=== PATIENT | female | born 1950 | race Caucasian/White ===

== ENCOUNTER → 2019-01-17 | Outpatient (CLI) | payer MEDICARE | END | disposition home or self-care (01) | LOC: CFH 11:14 | PROVIDERS: ATTEND Nurse Practitioner Family | DX: Z12.31 Encounter for screening mammogram for malignant neoplasm of breast (principal) | CPT/HCPCS: 77067 ==

== ENCOUNTER 2020-11-15 15:38 | Emergency (ER) | payer MEDICARE ==
[~2020-11-15] VITALS: Ht 170.2 cm; Wt 85.6 kg
[2020-11-15] MEDS ORDERED: SODIUM CHLORIDE FLUSH 10ML SYR IVF ONE (16:30)
[2020-11-15] MEDS ORDERED: ONDANSETRON 2MG/ML, 2ML ONE (16:35)
[2020-11-15] MEDS ORDERED: FAMOTIDINE 20 MG/2 ML ONE (16:35)
[2020-11-15] MEDS ORDERED: MAALOX/HYOSCYAMINE/LIDOCAINE 45 ML BTL ONE (16:35)
[2020-11-15] MEDS: FAMOTIDINE 20 MG/2 ML IV ONE ×2 (16:38→16:42)
[2020-11-15] MEDS: MAALOX/HYOSCYAMINE/LIDOCAINE 45 ML BTL PO ONE ×2 (16:39→16:42)
[2020-11-15] MEDS: ONDANSETRON 2MG/ML, 2ML IVPush ONE ×2 (16:39→16:42)
[2020-11-15] MEDS ORDERED: ARMOUR THYROID (16:44)
--- NOTE | 2020-11-15 16:50 | NUR ---
PT AMBULATED TO RESTROOM WITH STEADY GAIT TO PROVIDE URINE SAMPLE. PIV PLACED, LABS DRAWN AND SENT TO LAB WITH STICKERS. IVF RUNNING. PT REFUSED ALL MEDS. PROVIDER NOTIFIED. PT CONNECTED TO MONITORING. CALL LIGHT IN REACH.
[2020-11-15] MEDS ORDERED: SODIUM CHLORIDE 0.9% 1,000ML IVBOLUS ONE (17:00)
[2020-11-15 17:01] LABS: BASOPHILS % (AUTO) 1 % (0-1); EOSINOPHILS % (AUTO) 0 % (1-7); LYMPHOCYTES % (AUTO) 17 % (22-44); MEAN CORPUSCULAR HEMOGLOBIN 27.3 pg (27.0-34.8); MEAN CORPUSCULAR HGB CONC 33.1 g/dL (32.4-35.8); MEAN PLATELET VOLUME 8.8 fL (7.4-10.4); MONOCYTES % (AUTO) 9 % (2-9); NEUTROPHILS % (AUTO) 73 % (42-75); PLATELET COUNT 271 x10^3/uL (130-400); RED CELL DISTRIBUTION WIDTH 14.8 % (9.6-15.2)
[2020-11-15 17:02] LABS: MD NO
[2020-11-15 17:07] LABS: MICROSCOPIC AUTO
[2020-11-15 17:09] LABS: ALANINE AMINOTRANSFERASE 29 U/L (12-78); ALBUMIN 3.8 g/dL (3.4-5.0); ANION GAP 5 mmol/L (5-15); CALCIUM 9.1 mg/dL (8.5-10.1); CHLORIDE 110 mmol/L (98-107); CREATININE 1.06 mg/dL (0.55-1.02)
--- NOTE | 2020-11-15 17:23 | NUR ---
TASK RN: PT REFUSING CT SCAN STATING "HOW MUCH IS THIS ALL GONNA COST?" PT EDUCATED ON NEED FOR CT SCAN. CONTINUES TO REFUSE. ERP DR. HERNANDEZ NOTIFIED.
[2020-11-15 17:25] LABS: ALKALINE PHOSPHATASE 93 U/L (45-117); BILIRUBIN,TOTAL 0.6 mg/dL (0.2-1.0)
--- NOTE | 2020-11-15 17:25 | NUR ---
TASK RN: JOI LEÓN AT BEDSIDE FOR EDUCATION ABOUT MEDICATIONS/IMAGING.
[2020-11-15] MEDS ORDERED: CEFTRIAXONE PMX 1GM/50ML 50 ML ONE (17:30)
[2020-11-15] MEDS ORDERED: CEFTRIAXONE PMX 1GM/50ML 50 ML IV ONE (17:30)
--- NOTE | 2020-11-15 18:34 | NUR ---
ALL RESULTS ARE BACK AT THIS TIME. CHART UP FOR RECHECK.
[2020-11-15 18:46] VITALS: BP 159/72
== END 2020-11-15 20:35 | disposition home or self-care (01) ==
LOC: ED 17:39
DX: G89.29 Other chronic pain (principal); R10.12 Left upper quadrant pain; N39.0 Urinary tract infection, site not specified; N20.0 Calculus of kidney; R07.89 Other chest pain
CPT/HCPCS: 36415; 71045; 74018; 80053; 81001; 83690; 83880; 85025; 87086; 93005; 96361; 96365; 99285; J0696; J7030; J2405

== ENCOUNTER 2020-11-22 09:46 | Emergency (ER) | payer MEDICARE ==
[~2020-11-22] VITALS: Ht 170.2 cm; Wt 86.3 kg
[~2020-11-22 09:46] MED LIST: ARMOUR THYROID
--- NOTE | 2020-11-22 10:10 | NUR ---
pt states that she came in because4 she needs a copy of the xray she had last time she was here in the er and her urologist asked her to come in to get a US.
[2020-11-22 11:04] LABS: ALBUMIN 3.6 g/dL (3.4-5.0); ANION GAP 6 mmol/L (5-15); CALCIUM 9.2 mg/dL (8.5-10.1); CHLORIDE 110 mmol/L (98-107)
[2020-11-22 11:11] LABS: BASOPHILS % (AUTO) 1 % (0-1); EOSINOPHILS % (AUTO) 2 % (1-7); LYMPHOCYTES % (AUTO) 28 % (22-44); MEAN CORPUSCULAR HEMOGLOBIN 27.5 pg (27.0-34.8); MEAN CORPUSCULAR HGB CONC 32.7 g/dL (32.4-35.8); MEAN PLATELET VOLUME 8.3 fL (7.4-10.4); MONOCYTES % (AUTO) 8 % (2-9); NEUTROPHILS % (AUTO) 61 % (42-75); PLATELET COUNT 226 x10^3/uL (130-400); RED BLOOD COUNT 4.99 x10^6/uL (3.82-5.3); RED CELL DISTRIBUTION WIDTH 14.7 % (9.6-15.2)
--- NOTE | 2020-11-22 11:11 | NUR ---
pt in bed no distress.
[2020-11-22 11:14] LABS: MD NO
--- NOTE | 2020-11-22 12:29 | NUR ---
pt in bed no distress
[2020-11-22 12:31] LABS: MICROSCOPIC AUTO
--- NOTE | 2020-11-22 12:47 | NUR ---
notified md of bp. Addendum: 11/22/20 at 1249 by ERIS notified my of bp will recheck with alphonso gutierrez
[2020-11-22 12:56] VITALS: BP 148/72
--- NOTE | 2020-11-22 13:07 | NUR ---
pt walked out self with steady gait. if s&s worsen return to the er
== END 2020-11-22 13:19 ==
LOC: ED 10:35
DX: N30.00 Acute cystitis without hematuria (principal); I80.9 Phlebitis and thrombophlebitis of unspecified site; N20.0 Calculus of kidney; R10.9 Unspecified abdominal pain; M79.601 Pain in right arm; E03.9 Hypothyroidism, unspecified
CPT/HCPCS: 36415; 76770; 80048; 81001; 82040; 85025; 87086; 99285

== ENCOUNTER 2021-04-18 09:38 | Day surgery (SDC) | payer MEDICARE ==
[~2021-04-18] VITALS: Ht 171.4 cm; Wt 85.7 kg
[~2021-04-18 09:38] MED LIST changes: +AMINO PO; +ASHW300C PO; +BIOT25005 PO; +CHRO200T10 PO; +DMAE PO; +GRAP50CA3 PO; +Iron PO; +L.AC1CAP6 PO; +LACT1CAP35 PO; +MAGN400T36 PO; +MELA1TAB8 PO; +PANTOTHENIC ACID PO; +PRAS1TAB2 PO; +SELE200T10 PO; +THEA200C PO; +THYR60TA PO; +VANADYL SULFATE PO; +VITA100C11 PO; +[UNRECOGNIZED DRUG - OTHER] PO; +[UNRECOGNIZED DRUG - OTHER] PO; +[UNRECOGNIZED DRUG - OTHER] PO; +c-progesterone TP; +hyaluronic acid PO; +milk thistle PO; +zinc PO
[2021-04-18 11:14] VITALS: BP 170/86
[2021-04-18] MEDS ORDERED: ALBU8.5H8 INH (11:19)
[2021-04-18] MEDS ORDERED: SODIUM CHLORIDE 0.9% 1,000 ML IV SCH (11:30)
[2021-04-18] MEDS ORDERED: MIDAZOLAM 1 MG/ML, 5ML ONE (12:10)
[2021-04-18] MEDS ORDERED: FLUMAZENIL 0.1 MG/1 ML, 5ML ONE (12:11)
[2021-04-18] MEDS ORDERED: NALOXONE 1 MG/ML, 2ML ONE (12:11)
[2021-04-18] MEDS ORDERED: FENTANYL PF 100 MCG/2ML ONE (12:11)
[2021-04-18] MEDS ORDERED: LIDOCAINE-MPF 1%, 5ML ONE (12:12)
[2021-04-18] MEDS ORDERED: VISIPAQUE 270 MG/ML, 50ML BOTTLE ONE (13:12)
[2021-04-18] MEDS ORDERED: OXYcodone/APAP 5/325MG TABLET ONE (13:52)
[2021-04-18] MEDS ORDERED: OXYcodone/APAP 5/325MG TABLET PO PRN (14:00)
[2021-04-18] MEDS ORDERED: ACETAMINOPHEN 325 MG TABLET ONE (14:04)
[2021-04-18] MEDS ORDERED: ACETAMINOPHEN 325 MG TABLET PO ONE (14:30)
[2021-04-18] MEDS ORDERED: ONDANSETRON ODT 4 MG PO ONE (14:30)
[2021-04-18] MEDS ORDERED: ONDANSETRON ODT 8 MG ONE (14:38)
[2021-04-18] MEDS ORDERED: ONDANSETRON ODT 8 MG PO ONE (15:00)
== END 2021-04-18 15:20 | disposition home or self-care (01) ==
LOC: RAD 09:38
PROVIDERS: ATTEND Student in an Organized Health Care Education/Training Program
DX: N20.0 Calculus of kidney (principal); I10 Essential (primary) hypertension; E78.5 Hyperlipidemia, unspecified; J45.909 Unspecified asthma, uncomplicated; Z79.899 Other long term (current) drug therapy; Z88.0 Allergy status to penicillin; Z88.8 Allergy status to other drugs, medicaments and biological substances; Z91.018 Allergy to other foods
CPT/HCPCS: 50433; 99156; 99157; C1751; C1769; C1894; C2625; J2250; J3010; J7030; Q9966; 50432; J2310

== ENCOUNTER 2021-04-19 06:54 | Inpatient (IN) | payer MEDICARE ==
[2021-04-16 10:45] LABS: ANION GAP 4 mmol/L (5-15); CALCIUM 9.2 mg/dL (8.5-10.1); CHLORIDE 107 mmol/L (98-107); CREATININE 0.89 mg/dL (0.55-1.02)
[2021-04-16 10:46] LABS: MICROSCOPIC AUTO
[2021-04-16 10:48] LABS: INTERNATIONAL NORMALIZED RATIO 0.95 (0.93-1.1); PROTHROMBIN TIME 10.2 Seconds (9.6-11.5)
[~2021-04-19] VITALS: Ht 171.4 cm; Wt 96.5 kg
[~2021-04-19 06:54] MED LIST changes: +ALBU8.5H8 INH
[2021-04-19 07:28] VITALS: BP 189/82
[2021-04-19] MEDS ORDERED: CHLORHEXIDINE 15 ML UDC PO ONE (07:30)
[2021-04-19] MEDS ORDERED: LACTATED RINGERS 1,000 ML IV SCH (07:30)
[2021-04-19] MEDS ORDERED: MEPERIDINE/PF 25MG/0.5ML IVPush PRN (08:30)
[2021-04-19] MEDS ORDERED: OXYcodone 5 MG/5 ML ORAL.SOL UDC PO PRN (08:30)
[2021-04-19] MEDS ORDERED: DIPHENHYDRAMINE 50 MG/ML, 1ML IVPush PRN (08:30)
[2021-04-19] MEDS ORDERED: HALOPERIDOL 5 MG/ML IV PRN (08:30)
[2021-04-19] MEDS ORDERED: LABETALOL 5MG/ML, 20ML IV PRN (08:30)
[2021-04-19] MEDS ORDERED: ACETAMINOPHEN 325 MG TABLET PO PRN (08:30)
[2021-04-19] MEDS ORDERED: hydrALAzine 20 MG/ML, 1ML IV PRN (08:30)
[2021-04-19] MEDS ORDERED: FENTANYL PF 100 MCG/2ML IV PRN (08:30)
[2021-04-19] MEDS ORDERED: HYDROmorphone 1 MG/ML, 1ML INJ IVPush PRN (08:30)
[2021-04-19] MEDS ORDERED: PROMETHAZINE 25 MG/ML, 1ML IVPush PRN (08:30)
[2021-04-19] MEDS ORDERED: MIDAZOLAM 1 MG/ML, 2ML ONE (10:17)
[2021-04-19] MEDS ORDERED: FENTANYL PF 250 MCG/5ML ONE (10:17)
[2021-04-19] MEDS ORDERED: OMNIPAQUE 350 MG/ML, 50 ML BOTTLE ONE ×2 (10:39→12:16)
[2021-04-19] MEDS ORDERED: GENTAMICIN 80 MG/2 ML ONE ×2 (10:39→11:59)
[2021-04-19] MEDS ORDERED: CEFAZOLIN 1,000 MG ONE ×2 (10:39→13:58)
[2021-04-19] MEDS ORDERED: CLINDAMYCIN 150 MG/ML, 6ML ONE (11:59)
[2021-04-19] MEDS ORDERED: PHENYLEPHRINE 10 MG/ML ONE (12:08)
[2021-04-19] MEDS ORDERED: OMNIPAQUE 180 MG/ML, 20ML VIAL ONE (12:17)
[2021-04-19] MEDS ORDERED: VISIPAQUE 270 MG/ML, 150ML BOTTLE IV ONE (13:00)
[2021-04-19] MEDS ORDERED: NEOSTIGMINE 1 MG/ML, 10ML ONE (13:58)
[2021-04-19] MEDS ORDERED: SUCCINYLCHOLINE 20 MG/ML, 10ML ONE (13:58)
[2021-04-19] MEDS ORDERED: DEXAMETHASONE 4 MG/ML, 1ML ONE (13:58)
[2021-04-19] MEDS ORDERED: ROCURONIUM 10MG/ML,5ML ONE (13:58)
[2021-04-19] MEDS ORDERED: ONDANSETRON 2MG/ML, 2ML ONE (13:58)
[2021-04-19] MEDS ORDERED: PROPOFOL 10 MG/ML, 20ML ONE (13:58)
[2021-04-19] MEDS ORDERED: GLYCOPYRROLATE 0.2MG/1ML, 5ML ONE (13:58)
[2021-04-19] MEDS ORDERED: SODIUM BICARBONATE 1 MEQ/ML, 50ML VIAL ONE (14:00)
[2021-04-19] MEDS ORDERED: ONDANSETRON 2MG/ML, 2ML IV PRN (14:30)
[2021-04-19] MEDS ORDERED: HEPARIN 5,000 UNITS/ML, 1ML SQ SCH (14:30)
[2021-04-19] MEDS: ACETAMINOPHEN 325 MG TABLET PO SCH ×2 (14:30→22:03)
[2021-04-19] MEDS ORDERED: HYDROmorphone 1 MG/ML, 1ML INJ IV PRN (14:30)
[2021-04-19] MEDS ORDERED: MEPERIDINE/PF 25MG/ML,1ML ONE (14:50)
[2021-04-19] MEDS: SODIUM CHLORIDE 0.9% 1,000 ML IV SCH (17:00)
[2021-04-19 17:03] LABS: ALBUMIN 3.3 g/dL (3.4-5.0); CHLORIDE 108 mmol/L (98-107)
[2021-04-19 17:06] LABS: ANION GAP 7 mmol/L (5-15); CREATININE 1.02 mg/dL (0.55-1.02)
[2021-04-19 20:04] VITALS: BP 137/73
[2021-04-19] MEDS: DOCUSATE 100 MG CAPSULE PO SCH (22:03)
[2021-04-19] MEDS: MELATONIN 5 MG TABLET PO SCH (22:03)
[2021-04-20 00:17] VITALS: BP 111/50
[2021-04-20 04:14] VITALS: BP 115/71
[2021-04-20] MEDS: SODIUM CHLORIDE 0.9% 1,000 ML IV SCH ×3 (04:41→23:39)
[2021-04-20] MEDS: ACETAMINOPHEN 325 MG TABLET PO SCH ×4 (04:42→23:38)
[2021-04-20] MEDS: THYROID 30 MG TABLET PO SCH (04:50)
[2021-04-20 06:08] LABS: ANION GAP 5 mmol/L (5-15); CALCIUM 8.7 mg/dL (8.5-10.1); CHLORIDE 110 mmol/L (98-107)
[2021-04-20 06:11] LABS: CREATININE 0.84 mg/dL (0.55-1.02)
[2021-04-20 06:45] VITALS: BP 132/73
[2021-04-20] MEDS: HEPARIN 5,000 UNITS/ML, 1ML SQ SCH ×3 (07:57→23:47)
[2021-04-20] MEDS: DOCUSATE 100 MG CAPSULE PO SCH ×2 (07:57→23:37)
[2021-04-20] MEDS: POLYETHYLENE GLYCOL 17 GM PACKET PO SCH ×2 (07:57→08:02)
[2021-04-20] MEDS: OXYcodone 5 MG/5 ML ORAL.SOL UDC PO PRN ×2 (07:57→13:44)
[2021-04-20] MEDS ORDERED: ALUMINUM/MAG/SIMETHICONE 30 ML UDC ONE (11:35)
[2021-04-20] MEDS ORDERED: ALUMINUM/MAG/SIMETHICONE 30 ML UDC PO PRN (12:00)
[2021-04-20 12:12] VITALS: BP 166/84
[2021-04-20 16:28] VITALS: BP 154/74
[2021-04-20 19:25] VITALS: BP 135/73
[2021-04-20] MEDS: MELATONIN 5 MG TABLET PO SCH (23:37)
[2021-04-21 02:00] VITALS: BP 130/70
[2021-04-21 05:14] LABS: ANION GAP 4 mmol/L (5-15); CALCIUM 8.2 mg/dL (8.5-10.1); CHLORIDE 109 mmol/L (98-107); CREATININE 0.84 mg/dL (0.55-1.02)
[2021-04-21] MEDS: THYROID 30 MG TABLET PO SCH (06:33)
[2021-04-21] MEDS: ACETAMINOPHEN 325 MG TABLET PO SCH ×2 (06:34→11:30)
[2021-04-21 06:46] VITALS: BP 158/94
[2021-04-21] MEDS: POLYETHYLENE GLYCOL 17 GM PACKET PO SCH (08:19)
[2021-04-21] MEDS: DOCUSATE 100 MG CAPSULE PO SCH (08:19)
[2021-04-21] MEDS: HEPARIN 5,000 UNITS/ML, 1ML SQ SCH ×2 (08:19→16:00)
[2021-04-21] MEDS: OXYcodone 5 MG/5 ML ORAL.SOL UDC PO PRN ×2 (08:22→15:17)
[2021-04-21] MEDS: SODIUM CHLORIDE 0.9% 1,000 ML IV SCH (08:34)
[2021-04-21] MEDS ORDERED: OXYC5TAB2 PO (12:18)
[2021-04-21] MEDS ORDERED: DOCU-131 PO (12:18)
[2021-04-21 12:30] VITALS: BP 173/74
[2021-04-21 16:22] VITALS: BP 162/80
== END 2021-04-21 16:30 | disposition home or self-care (01) | DRG 661 ==
LOC: OUT 06:54 → 4NE 13:50 → OUT 16:06 → OBSVTOIN 04-20 18:06
PROVIDERS: ADMIT Student in an Organized Health Care Education/Training Program; ATTEND Student in an Organized Health Care Education/Training Program
PROC: BT1D1ZZ Fluoroscopy of Right Kidney, Ureter and Bladder using Low Osmolar Contrast (ICD-10-PCS; 2021-04-19)
PROC: 0T763DZ Dilation of Right Ureter with Intraluminal Device, Percutaneous Approach (ICD-10-PCS; 2021-04-19)
PROC: 0TC33ZZ Extirpation of Matter from Right Kidney Pelvis, Percutaneous Approach (ICD-10-PCS; principal; 2021-04-19 09:30)
DX: N13.2 Hydronephrosis with renal and ureteral calculous obstruction (principal); N18.2 Chronic kidney disease, stage 2 (mild); N26.1 Atrophy of kidney (terminal); Z20.822 Contact with and (suspected) exposure to COVID-19
CPT/HCPCS: 36415; 74176; 74420; 80048; 81001; 82040; 82360; 85014; 85018; 85610; 86850; 86900; 87086; 88300; 93005; G0378; J0690; J1100; J1170; J1644; J2175; J2250; J2405; J2704; J2710; J3010; Q9965; Q9966; Q9967; U0005; C2617; J0330; J1580; J2370; J7030; J7120; U0003

== ENCOUNTER 2021-04-21 22:05 | Emergency (ER) | payer MEDICARE ==
[~2021-04-21] VITALS: Ht 226.1 cm; Wt 87.5 kg
[~2021-04-21 22:05] MED LIST changes: +DOCU-131 PO; +OXYC5TAB2 PO
[2021-04-21 22:13] VITALS: BP 182/89
[2021-04-21] MEDS ORDERED: MORPHINE SULFATE 4 MG/ML, 1ML ONE (22:56)
[2021-04-21] MEDS ORDERED: ONDANSETRON 2MG/ML, 2ML ONE (22:56)
[2021-04-21] MEDS ORDERED: ONDANSETRON 2MG/ML, 2ML IVPush ONE (23:00)
[2021-04-21] MEDS ORDERED: MORPHINE SULFATE 4 MG/ML, 1ML IVPush PRN (23:00)
[2021-04-21 23:05] LABS: BASOPHILS % (AUTO) 0 % (0-1); EOSINOPHILS % (AUTO) 1 % (1-7); LYMPHOCYTES % (AUTO) 18 % (22-44); MEAN CORPUSCULAR HEMOGLOBIN 28.4 pg (27.0-34.8); MEAN CORPUSCULAR HGB CONC 33.7 g/dL (32.4-35.8); MONOCYTES % (AUTO) 10 % (2-9); NEUTROPHILS % (AUTO) 71 % (42-75); PLATELET COUNT 210 x10^3/uL (130-400); RED BLOOD COUNT 4.54 x10^6/uL (3.82-5.3); RED CELL DISTRIBUTION WIDTH 14.1 % (9.6-15.2)
[2021-04-21 23:10] LABS: ANION GAP 8 mmol/L (5-15); CALCIUM 8.5 mg/dL (8.5-10.1); CHLORIDE 106 mmol/L (98-107); CREATININE 0.87 mg/dL (0.55-1.02)
[2021-04-21 23:21] LABS: MICROSCOPIC INDICATED
[2021-04-22] MEDS ORDERED: CEFDINIR 300 MG CAPSULE ONE (00:12)
[2021-04-22] MEDS ORDERED: KETOROLAC 30 MG/1 ML ONE (00:13)
[2021-04-22] MEDS ORDERED: CEFDINIR 300 MG CAPSULE PO ONE (00:30)
== END 2021-04-22 00:49 | disposition home or self-care (01) ==
LOC: ED 23:00
DX: N13.2 Hydronephrosis with renal and ureteral calculous obstruction (principal); J45.909 Unspecified asthma, uncomplicated; E03.9 Hypothyroidism, unspecified
CPT/HCPCS: 36415; 76770; 80048; 81001; 82040; 85025; 87086; 96374; 96375; 99284; J2270; J2405

== ENCOUNTER → 2021-05-02 | Outpatient (CLI) | payer MEDICARE ==
[2021-05-02 11:58] LABS: BASOPHILS % (AUTO) 1 % (0-1); EOSINOPHILS % (AUTO) 2 % (1-7); LYMPHOCYTES % (AUTO) 27 % (22-44); MEAN CORPUSCULAR HEMOGLOBIN 28.1 pg (27.0-34.8); MEAN CORPUSCULAR HGB CONC 33.1 g/dL (32.4-35.8); MEAN PLATELET VOLUME 8.5 fL (7.4-10.4); MONOCYTES % (AUTO) 8 % (2-9); NEUTROPHILS % (AUTO) 62 % (42-75); PLATELET COUNT 300 x10^3/uL (130-400); RED BLOOD COUNT 4.93 x10^6/uL (3.82-5.3); RED CELL DISTRIBUTION WIDTH 14.7 % (9.6-15.2)
[2021-05-02 12:03] LABS: MICROSCOPIC AUTO
[2021-05-02 12:10] LABS: ALANINE AMINOTRANSFERASE 36 U/L (12-78); ALBUMIN 3.4 g/dL (3.4-5.0); ANION GAP 5 mmol/L (5-15); CALCIUM 8.9 mg/dL (8.5-10.1); CHLORIDE 110 mmol/L (98-107); CREATININE 0.83 mg/dL (0.55-1.02)
[2021-05-02 12:13] LABS: ALKALINE PHOSPHATASE 80 U/L (45-117); BILIRUBIN,TOTAL 0.8 mg/dL (0.2-1.0); TOTAL PROTEIN 7.7 g/dL (6.4-8.2)
[2021-05-02 12:15] LABS: INTERNATIONAL NORMALIZED RATIO 0.96 (0.93-1.1); PROTHROMBIN TIME 10.3 Seconds (9.6-11.5)
== END | disposition home or self-care (01) ==
LOC: STAR 10:32
PROVIDERS: ATTEND Student in an Organized Health Care Education/Training Program
DX: Z01.818 Encounter for other preprocedural examination (principal); N20.0 Calculus of kidney
CPT/HCPCS: 36415; 80053; 81001; 85025; 85610; 87086

== ENCOUNTER 2021-05-10 13:43 | Day surgery (SDC) | payer MEDICARE ==
[~2021-05-10] VITALS: Ht 170.2 cm; Wt 87.7 kg
[2021-05-10 14:32] VITALS: BP 177/97
[2021-05-10] MEDS ORDERED: CHLORHEXIDINE 15 ML UDC ONE (15:15)
[2021-05-10] MEDS ORDERED: CHLORHEXIDINE 15 ML UDC PO ONE (15:30)
[2021-05-10] MEDS ORDERED: LACTATED RINGERS 1,000 ML IV SCH (15:30)
[2021-05-10] MEDS ORDERED: FENTANYL PF 100 MCG/2ML ONE ×2 (16:48→20:36)
[2021-05-10] MEDS ORDERED: ACETAMINOPHEN 325 MG TABLET PO PRN (19:30)
[2021-05-10] MEDS ORDERED: HALOPERIDOL 5 MG/ML IV PRN (19:30)
[2021-05-10] MEDS ORDERED: morphine SULFATE 10 MG/ML, 1ML IVPush PRN (19:30)
[2021-05-10] MEDS ORDERED: HYDROmorphone 1 MG/ML, 1ML INJ IVPush PRN (19:30)
[2021-05-10] MEDS ORDERED: FENTANYL PF 100 MCG/2ML IV PRN (19:30)
[2021-05-10] MEDS ORDERED: PROMETHAZINE 25 MG/ML, 1ML IVPush PRN (19:30)
[2021-05-10] MEDS ORDERED: MEPERIDINE/PF 25MG/0.5ML IVPush PRN (19:30)
[2021-05-10] MEDS ORDERED: hydrALAzine 20 MG/ML, 1ML IV PRN (19:30)
[2021-05-10] MEDS ORDERED: LABETALOL 5MG/ML, 20ML IV PRN (19:30)
[2021-05-10] MEDS ORDERED: DEXAMETHASONE 4 MG/ML, 1ML ONE (19:49)
[2021-05-10] MEDS ORDERED: PROPOFOL 10 MG/ML, 20ML ONE (19:49)
[2021-05-10] MEDS ORDERED: ROCURONIUM 10MG/ML,5ML ONE (19:49)
[2021-05-10] MEDS ORDERED: GLYCOPYRROLATE 0.2MG/1ML, 5ML ONE (19:49)
[2021-05-10] MEDS ORDERED: CEFAZOLIN 1,000 MG ONE (19:49)
[2021-05-10] MEDS ORDERED: ONDANSETRON 2MG/ML, 2ML ONE (19:49)
[2021-05-10] MEDS ORDERED: NEOSTIGMINE 1 MG/ML, 10ML ONE (19:49)
[2021-05-10] MEDS ORDERED: HALOPERIDOL 5 MG/ML ONE (20:28)
[2021-05-10] MEDS: OXYcodone 5 MG/5 ML ORAL.SOL UDC PO PRN ×2 (20:39→21:09)
[2021-05-10] MEDS ORDERED: ACETAMINOPHEN 650 MG/20.3 ML UDC ONE (20:39)
[2021-05-10] MEDS ORDERED: OXYcodone 5 MG/5 ML ORAL.SOL UDC ONE (20:39)
[2021-05-10] MEDS ORDERED: OPIUM/BELLADONNA SUPP.RECT 16.2-30 MG PR PRN (21:30)
[2021-05-10] MEDS ORDERED: OXYcodone 5 MG/5 ML ORAL.SOL UDC PO PRN (21:30)
[2021-05-10] MEDS ORDERED: HEPARIN 5,000 UNITS/ML, 1ML SQ SCH (21:30)
[2021-05-10] MEDS: KETOROLAC 30 MG/1 ML IVPush SCH (23:27)
[2021-05-10] MEDS: SODIUM CHLORIDE 0.9% 1,000 ML IV SCH (23:28)
[2021-05-11 00:28] VITALS: BP 139/75
[2021-05-11] MEDS: ACETAMINOPHEN 325 MG TABLET PO SCH ×2 (03:41→09:04)
[2021-05-11 03:42] VITALS: BP 113/70
[2021-05-11] MEDS: KETOROLAC 30 MG/1 ML IVPush SCH (05:34)
[2021-05-11 08:02] VITALS: BP 111/64
[2021-05-11] MEDS: SODIUM CHLORIDE 0.9% 1,000 ML IV SCH (09:00)
[2021-05-11] MEDS ORDERED: POLYETHYLENE GLYCOL 17 GM PACKET PO SCH ×2 (09:00)
[2021-05-11 10:50] VITALS: BP 150/68
== END 2021-05-11 11:01 | disposition home or self-care (01) ==
LOC: OUT 13:43 → 4NE 22:25 → OUT 05-11 11:01
PROVIDERS: ATTEND Student in an Organized Health Care Education/Training Program
DX: N13.2 Hydronephrosis with renal and ureteral calculous obstruction (principal); E03.9 Hypothyroidism, unspecified; J45.909 Unspecified asthma, uncomplicated; Z79.890 Hormone replacement therapy; Z79.899 Other long term (current) drug therapy; Z87.442 Personal history of urinary calculi; Z88.0 Allergy status to penicillin; Z88.8 Allergy status to other drugs, medicaments and biological substances
CPT/HCPCS: 52356; 74018; 82360; 88300; C1758; C1769; C2617; J0690; J1100; J1630; J1644; J1885; J2405; J2704; J2710; J3010; J7030; J7120; 76000; G0378; Q9967